=== PATIENT | female | born 1945 | race Caucasian/White ===

== ENCOUNTER 2016-08-07 04:57 | Emergency (ER) | payer OTHER, BC ==
--- NOTE | 2016-08-07 05:15 | EDPHY ---
H & P Time Seen by Provider: 08/07/16 04:59 HPI/ROS: CHIEF COMPLAINT: rash to the left forehead hairline HISTORY OF PRESENT ILLNESS: 70-year-old female 1st noted a sensation of irritation to the left side of the forehead on Saturday evening. It was a food itch had started. She noted the rash later the next day and persist. She is here at the wee hours of the morning as she was so worried that it might be shingles. She does have a recollection of having chickenpox as a child. No new exposure to any of the following: Medications: None. No antibiotics or MAXIMINO inhibitors or MAXIMINO blockers Detergents or soaps: none Prior, similar problem: No Prior allergy work up: No Home treatment: None Does recall having trouble with prednisone therapy in the past would made her feel on well. She recalls seen her survey statistician earlier in the year. He knows the roughened raised area on the left side of forehead is unclear as to whether was there in the past or not however the new areas on the edge of the scalp are distinctly new REVIEW OF SYSTEMS: No other lesions elsewhere. Smoking Status: Never smoked Physical Exam: General Appearance: Alert, no distress. Afebrile. Normal phonation. No respiratory distress Eyes: Pupils equal and round no pallor or injection. No icterus. Face: There are lesions present just at the hairline on the left. The appeared to be scabs. There are no signs of vesicles at this time. On the left side of the forehead there was an area of roughened raise skin which is not distinctly evident to be a he has seborrheic keratosis versus early onset vesicles ENT, Mouth: Mucous membranes moist. Allergies/Adverse Reactions: flecainide acetate [From Tambocor] Allergy (Severe, Verified 09/17/15 22:02) Unknown phenytoin [Phenytoin] Allergy (Severe, Verified 09/17/15 22:02) Unknown steroid eye drops Allergy (Unknown, Uncoded 09/17/15 22:02) Unknown Home Medications: Medication Instructions Recorded Atenolol [Tenormin 25 mg (*)] 5 mg PO BID 02/03/13 Calcium Carbonate [Caltrate 600] 600 mg PO BID 02/03/13 Herbals/Supplements -Info Only 1 each PO AD 02/03/13 Levothyroxine [Synthroid 100 mcg 100 mcg PO DAILY 02/03/13 (RX)] Warfarin Sodium [Coumadin 2.5MG 2.5 mg PO SUMOWETHSA 02/03/13 (*)] Warfarin Sodium [Coumadin 5MG (*)] 5 mg PO TUFR 02/03/13 Losartan Potassium [Cozaar 25 mg 25 mg PO DAILY 01/02/16 (*)] Ocuvite Eye + Multi Tablet 50 mg PO DAILY 01/02/16 Acyclovir 800 mg PO 5XD #35 tab 08/07/16 Medical Decision Making ED Course/Re-evaluation: Diagnosis considerations include: Insect bites, scab secondary to itching, or shingles - no evidence of cellulitis We discussed rationale for management. Certainly the itching is reasonably construed as the Hallmark of her shingles. I do not expect her to progress to the junior herpetic neuralgia as she does not have pain in the 1st place. Thus given her prior history of intolerance to prednisone it would be reasonable to forego that aspect of management even though she is over 50. We discussed specific famciclovir, valacyclovir verses acyclovir and she will opted for the latter. The drug interaction program looks a comp does not show any interaction between the acyclovir and her Coumadin. Departure - Departure Disposition: Home, Routine, Self-Care Clinical Impression: Herpes zoster Qualifiers: Herpes zoster complications: without complications Qualified Code(s): B02.9 - Zoster without complications Condition: Good Instructions: Shingles (ED) Additional Instructions: You may opt to try topical Aveeno oatmeal to sooth the skin. As with a knee lesion or sore, avoid direct sunlight Caution, your contagious until the area has completely crusted over, approximately 2 weeks. Prescriptions: Acyclovir 800 mg PO 5XD #35 tab
[2016-08-07] MEDS ORDERED: ACYCLOVIR 400 MG TAB PO ONE (05:21)
[2016-08-07 05:29] VITALS: BP 153/75; PULSE 64; RESP 18; TEMP 97.7; O2SAT 96
[2016-08-07] MEDS ORDERED: ACYCLOVIR 400 MG PREPACK#4 BTL TAKEHOME ONE ×2 (05:32→05:42)
== END 2016-08-07 05:40 | disposition home or self-care (01) ==
LOC: CED 04:57
DX: B02.9 Zoster without complications (principal); Z79.01 Long term (current) use of anticoagulants

== ENCOUNTER → 2016-10-08 | Outpatient (CLI) | payer OTHER, BC | LOC: BHFA 13:45 | PROVIDERS: ATTEND Internal Medicine Cardiovascular Disease | DX: I48.91 Unspecified atrial fibrillation (principal); I10 Essential (primary) hypertension; I05.9 Rheumatic mitral valve disease, unspecified; Z95.0 Presence of cardiac pacemaker ==

== ENCOUNTER → 2017-01-28 | Outpatient (CLI) | payer OTHER, BC | LOC: CIMAGING 07:52 | PROVIDERS: ATTEND Internal Medicine | DX: Z12.31 Encounter for screening mammogram for malignant neoplasm of breast (principal) | CPT/HCPCS: G0202 ==

== ENCOUNTER → 2017-12-05 | Outpatient (CLI) | payer OTHER, BC | LOC: BHLMT 11:30 | PROVIDERS: ATTEND Internal Medicine Cardiovascular Disease | DX: I48.91 Unspecified atrial fibrillation (principal); I10 Essential (primary) hypertension; Z95.2 Presence of prosthetic heart valve | CPT/HCPCS: 93306-PO ==

== ENCOUNTER → 2018-02-13 | Outpatient (CLI) | payer OTHER, BC | LOC: CIMAGING 07:49 | PROVIDERS: ATTEND Internal Medicine | DX: Z12.31 Encounter for screening mammogram for malignant neoplasm of breast (principal) ==

== ENCOUNTER 2018-07-30 10:36 | Observation (INO) | payer OTHER, BC | END 2018-07-31 11:55 | disposition home health service (06) | LOC: FCATH 10:36 → F2N 14:37 ==